=== PATIENT | female | born 1950 | race African-American/Black ===

== ENCOUNTER 2018-11-01 19:48 | Inpatient (IN) | payer BC, MEDICARE ==
[~2018-11-01] VITALS: Ht 157.5 cm; Wt 92.1 kg
[2018-11-01] MEDS ORDERED: ONDANSETRON HCL 4MG/2ML INJ IV STA (21:05)
[2018-11-01] MEDS ORDERED: MORPHINE SULFATE 4 MG/ML CPJ (NOT FOR IM USE) IV STA (21:05)
[2018-11-01] MEDS ORDERED: SODIUM CHLORIDE 0.9% 1,000 ML IV ONE (21:05)
[2018-11-01 21:34] LABS: BASOPHILS % 1.5 % (0.0-2.0); EOSINOPHILS % 1.1 % (0.0-5.0); HEMATOCRIT. 39.5 % (36.0-48.0); HEMOGLOBIN. 13.3 g/dL (12.0-16.0); LYMPHOCYTES % 28.4 % (20.0-50.0); MEAN CORPUSCULAR HEMOGLOBIN 30.9 pg (28.0-32.0); MEAN CORPUSCULAR VOLUME 91.4 fL (81.0-99.0); MEAN PLATELET VOLUME 11.9 fl (7.4-10.4); MONOCYTES % 6.3 % (2.0-8.0); NEUTROPHILS % 62.7 % (40.0-76.0); PLATELET 146 x1000/uL (130-400); RED BLOOD CELL COUNT 4.32 mill/uL (4.2-5.4); RED CELL DISTRIBUTION WIDTH 15.3 % (11.6-14.6)
[2018-11-01 21:35] LABS: CHLORIDE 109 mEq/L (98-107)
[2018-11-01 21:40] LABS: PARTIAL THROMBOPLASTIN TIME 30.3 sec (23.4-31.0); PROTHROMBIN TIME 10.2 sec (9.6-11.0)
[2018-11-01 21:43] LABS: CREATINE KINASE 125 IU/L (26-192)
[2018-11-01 21:46] LABS: CREATINE KINASE MB FRACTION < 1.0 ng/mL (0.5-3.6)
[2018-11-01 22:47] LABS: CLARITY URINE CLEAR (CLEAR); COLOR URINE YELLOW (YELLOW); KETONES URINE TRACE (NEGATIVE); LEUKOCYTE ESTERASE URINE NEGATIVE (NEGATIVE); NITRITE URINE NEGATIVE (NEGATIVE); OCCULT BLOOD URINE TRACE (NEGATIVE); PH URINE 6.5 (4.5-8.0); PROTEIN URINE NEGATIVE (NEGATIVE); SPECIFIC GRAVITY URINE 1.011 (1.005-1.030); UROBILINOGEN URINE 0.2 E.U./dL (0.2-1.0)
[2018-11-01 23:23] VITALS: BP 158/72
[2018-11-02] VITALS: BP 179/72
[2018-11-02] MEDS ORDERED: AMLO5TAB88 PO (00:17)
[2018-11-02] MEDS ORDERED: NEBI10TA2 PO (00:17)
[2018-11-02] MEDS ORDERED: AZIL80TA PO (00:18)
[2018-11-02] MEDS ORDERED: MAGNESIUM CITRATE 300ML SOLUTION PO PRN (01:45)
[2018-11-02] MEDS ORDERED: ACETAMINOPHEN 325MG TABLET PO PRN (01:45)
[2018-11-02] MEDS ORDERED: ONDANSETRON HCL 4MG/2ML INJ IV PRN (01:45)
[2018-11-02] MEDS ORDERED: ZOLPIDEM TARTRATE 5MG TABLET PO PRN (02:30)
[2018-11-02 04:00] VITALS: BP 152/67
[2018-11-02] MEDS ORDERED: CYCLOBENZAPRINE 10MG TABLET PO PRN (05:15)
[2018-11-02] MEDS: OMEPRAZOLE 20MG CAPSULE EXTENDED RELEASE PO SCH ×2 (06:50→17:11)
[2018-11-02 07:28] LABS: CHLORIDE 112 mEq/L (98-107)
[2018-11-02 07:43] LABS: PHOSPHORUS 4.6 mg/dL (2.5-4.9)
[2018-11-02 07:44] LABS: LDL CHOLESTEROL 52 mg/dL (5-100)
[2018-11-02 07:45] LABS: HDL CHOLESTEROL 62 mg/dL (40-59); TOTAL IRON BINDING CAPACITY 246 ug/dL (250-450)
[2018-11-02] MEDS ORDERED: NON FORMULARY PATIENT HOME MED XX SCH (08:00)
[2018-11-02] MEDS: CARVEDILOL 12.5MG TABLET PO SCH ×2 (09:00→20:01)
[2018-11-02] MEDS: DOCUSATE SODIUM 100MG CAPSULE PO SCH ×2 (09:11→17:11)
[2018-11-02] MEDS: HYDROMORPHONE HCL/PF 2MG/ML CPJ IV PRN ×2 (12:27→19:53)
[2018-11-02 12:51] LABS: CREATINE KINASE 117 IU/L (26-192)
[2018-11-02 12:52] LABS: CREATINE KINASE MB FRACTION < 1.0 ng/mL (0.5-3.6)
[2018-11-02 20:00] VITALS: BP 175/73
[2018-11-02] MEDS: AMLODIPINE 5MG TABLET PO SCH (20:01)
[2018-11-02] MEDS: ATORVASTATIN CALCIUM 20MG TABLET PO SCH (20:01)
[2018-11-02 20:54] LABS: CREATINE KINASE 95 IU/L (26-192)
[2018-11-03] VITALS: BP 121/57
[2018-11-03 04:00] VITALS: BP_SYST 144; BP_SYST 176; BP_DIAS 70; BP_DIAS 75
[2018-11-03] MEDS: OMEPRAZOLE 20MG CAPSULE EXTENDED RELEASE PO SCH ×2 (06:15→17:39)
[2018-11-03 07:59] LABS: BASOPHILS % 1.1 % (0.0-2.0); EOSINOPHILS % 1.7 % (0.0-5.0); HEMATOCRIT. 37.3 % (36.0-48.0); HEMOGLOBIN. 12.1 g/dL (12.0-16.0); LYMPHOCYTES % 30.9 % (20.0-50.0); MEAN CORPUSCULAR HEMOGLOBIN 30.2 pg (28.0-32.0); MEAN CORPUSCULAR VOLUME 92.8 fL (81.0-99.0); MONOCYTES % 6.8 % (2.0-8.0); NEUTROPHILS % 59.5 % (40.0-76.0); PLATELET 144 x1000/uL (130-400); RED BLOOD CELL COUNT 4.02 mill/uL (4.2-5.4); RED CELL DISTRIBUTION WIDTH 15.2 % (11.6-14.6)
[2018-11-03 08:00] VITALS: BP 178/77
[2018-11-03] MEDS: DOCUSATE SODIUM 100MG CAPSULE PO SCH ×2 (08:00→17:39)
[2018-11-03] MEDS: CARVEDILOL 12.5MG TABLET PO SCH ×2 (08:00→21:00)
[2018-11-03 08:35] LABS: CHLORIDE 107 mEq/L (98-107)
[2018-11-03 08:40] LABS: PHOSPHORUS 3.8 mg/dL (2.5-4.9)
[2018-11-03] MEDS: HYDROMORPHONE HCL/PF 2MG/ML CPJ IV PRN ×2 (11:02→14:46)
[2018-11-03 12:00] VITALS: BP 185/76
[2018-11-03 16:00] VITALS: BP 156/46
[2018-11-03 20:00] VITALS: BP 176/70
[2018-11-03] MEDS ORDERED: DEXT 5%/0.45% NACL 1000ML 1,000 ML IV SCH (21:00)
[2018-11-03] MEDS: AMLODIPINE 5MG TABLET PO SCH (21:28)
[2018-11-03] MEDS: ATORVASTATIN CALCIUM 20MG TABLET PO SCH (21:29)
[2018-11-03] MEDS: MELOXICAM 7.5MG TABLET PO SCH (21:34)
[2018-11-04] VITALS: BP 193/69
[2018-11-04] MEDS: AMLODIPINE 5MG TABLET PO SCH ×2 (01:50→08:39)
[2018-11-04] MEDS: HYDRALAZINE HCL 50MG TABLET PO SCH ×2 (01:50→08:38)
[2018-11-04] MEDS: LOSARTAN POTASSIUM 100 MG TABLET PO SCH ×2 (01:50→08:37)
[2018-11-04 04:00] VITALS: BP 151/65
[2018-11-04] MEDS ORDERED: OMEPRAZOLE 20MG CAPSULE EXTENDED RELEASE PO SCH (06:45)
[2018-11-04 06:58] LABS: BASOPHILS % 1.1 % (0.0-2.0); EOSINOPHILS % 1.9 % (0.0-5.0); HEMATOCRIT. 37.6 % (36.0-48.0); HEMOGLOBIN. 12.5 g/dL (12.0-16.0); LYMPHOCYTES % 27.7 % (20.0-50.0); MEAN CORPUSCULAR HEMOGLOBIN 30.6 pg (28.0-32.0); MEAN CORPUSCULAR VOLUME 92.1 fL (81.0-99.0); MEAN PLATELET VOLUME 11.9 fl (7.4-10.4); MONOCYTES % 5.7 % (2.0-8.0); NEUTROPHILS % 63.6 % (40.0-76.0); PLATELET 146 x1000/uL (130-400); RED BLOOD CELL COUNT 4.08 mill/uL (4.2-5.4); RED CELL DISTRIBUTION WIDTH 15.1 % (11.6-14.6)
[2018-11-04 07:33] LABS: PHOSPHORUS 3.7 mg/dL (2.5-4.9)
[2018-11-04 08:00] VITALS: BP 183/81
[2018-11-04] MEDS: DOCUSATE SODIUM 100MG CAPSULE PO SCH (08:38)
[2018-11-04] MEDS: MELOXICAM 7.5MG TABLET PO SCH (08:38)
[2018-11-04] MEDS: CARVEDILOL 12.5MG TABLET PO SCH (08:39)
[2018-11-04 12:00] VITALS: BP 156/67
== END 2018-11-04 16:43 | disposition home or self-care (01) | DRG 605 ==
LOC: ER 20:39 → 5WST 21:34 → EDBEDREQTM 21:58 → EDBEDREQ 21:58 → ENRESERV 22:01
PROVIDERS: ADMIT Internal Medicine; ATTEND Internal Medicine
DX: S20.219A Contusion of unspecified front wall of thorax, initial encounter (principal); E78.5 Hyperlipidemia, unspecified; I11.9 Hypertensive heart disease without heart failure; I51.7 Cardiomegaly; M43.12 Spondylolisthesis, cervical region; M71.21 Synovial cyst of popliteal space [Baker], right knee; F43.10 Post-traumatic stress disorder, unspecified; S13.4XXA Sprain of ligaments of cervical spine, initial encounter; S43.402A Unspecified sprain of left shoulder joint, initial encounter; S43.401A Unspecified sprain of right shoulder joint, initial encounter; S23.3XXA Sprain of ligaments of thoracic spine, initial encounter; S33.5XXA Sprain of ligaments of lumbar spine, initial encounter; S33.8XXA Sprain of other parts of lumbar spine and pelvis, initial encounter; F41.9 Anxiety disorder, unspecified; Z86.73 Personal history of transient ischemic attack (TIA), and cerebral infarction without residual deficits; Z79.899 Other long term (current) drug therapy; V49.9XXA Car occupant (driver) (passenger) injured in unspecified traffic accident, initial encounter; Y93.89 Activity, other specified; Y92.89 Other specified places as the place of occurrence of the external cause; Y99.8 Other external cause status
CPT/HCPCS: 36415; 70486; 71250; 72146; 72148; 78306; 80061; 80069; 80076; 82248; 82550; 82553; 83540; 83550; 83735; 83880; 84100; 84439; 84443; 84481; 84484; 84550; 85651; 93005; 93970; 96374; 96375; 97162; 97535; 99291; A9503; J1170; J2270; J2405; J7030

== ENCOUNTER 2020-01-12 08:04 | Emergency (ER) | payer BC, MEDICARE ==
[~2020-01-12] VITALS: Ht 165.1 cm; Wt 82.0 kg
[~2020-01-12 08:04] MED LIST: AMLO5TAB88 PO; AZIL80TA PO; NEBI10TA2 PO
[2020-01-12] MEDS ORDERED: ONDANSETRON HCL 4MG/2ML INJ IV STA (11:28)
[2020-01-12] MEDS ORDERED: MORPHINE SULFATE 4 MG/ML CPJ (NOT FOR IM USE) IV STA (11:28)
[2020-01-12 11:47] LABS: BASOPHILS % 1.1 % (0.0-2.0); EOSINOPHILS % 1.5 % (0.0-5.0); HEMATOCRIT. 37.8 % (36.0-48.0); HEMOGLOBIN. 12.3 g/dL (12.0-16.0); LYMPHOCYTES % 22.3 % (20.0-50.0); MEAN CORPUSCULAR HEMOGLOBIN 29.6 pg (28.0-32.0); MEAN CORPUSCULAR VOLUME 90.7 fL (81.0-99.0); MEAN PLATELET VOLUME 12.4 fl (7.4-10.4); MONOCYTES % 4.8 % (2.0-8.0); NEUTROPHILS % 70.3 % (40.0-76.0); PLATELET 143 x1000/uL (130-400); RED BLOOD CELL COUNT 4.17 mill/uL (4.2-5.4); RED CELL DISTRIBUTION WIDTH 16.3 % (11.6-14.6)
[2020-01-12 11:50] LABS: CHLORIDE 111 mEq/L (98-107)
[2020-01-12 11:54] LABS: ETHANOL BLOOD < 10 mg/dL
[2020-01-12 15:20] VITALS: BP 177/79
== END 2020-01-12 15:22 | disposition home or self-care (01) ==
LOC: ER 08:22
DX: S52.611A Displaced fracture of right ulna styloid process, initial encounter for closed fracture (principal); S62.101A Fracture of unspecified carpal bone, right wrist, initial encounter for closed fracture; I10 Essential (primary) hypertension; F12.10 Cannabis abuse, uncomplicated; Z98.890 Other specified postprocedural states; V49.9XXA Car occupant (driver) (passenger) injured in unspecified traffic accident, initial encounter; Y93.89 Activity, other specified; Y92.89 Other specified places as the place of occurrence of the external cause; Y99.8 Other external cause status
CPT/HCPCS: 36415; 70450; 71045; 73110; 73560; 73590; 80053; 80320; 83690; 85025; 93005; 96374; 96375; 99285; J2270; J2405; G0480